=== PATIENT | female | born 1955 | race Two or more races ===

== ENCOUNTER 2018-06-22 08:15 | Day surgery (SDC) | payer OTHER ==
[2018-06-22] MEDS ORDERED: PROPOFOL 20 ML (09:28)
[2018-06-22] MEDS ORDERED: MIDAZOLAM 1 MG/ML 2 ML INJ (09:28)
== END 2018-06-22 12:52 | disposition home or self-care (01) ==
LOC: GIL 08:15
DX: Z12.11 Encounter for screening for malignant neoplasm of colon (principal); D12.6 Benign neoplasm of colon, unspecified; E11.9 Type 2 diabetes mellitus without complications; E78.5 Hyperlipidemia, unspecified; E66.9 Obesity, unspecified; Z68.33 Body mass index [BMI] 33.0-33.9, adult
CPT/HCPCS: 45380; 82962; 88305